=== PATIENT | female | born 1940 | race Caucasian/White ===

== ENCOUNTER 2018-05-22 09:35 | Emergency (ER) | payer MEDICARE, OTHER ==
--- NOTE | 2018-05-22 10:00 | EDM.PDOC ---
ED HPI GENERAL MEDICAL PROBLEM - General Chief Complaint: Trauma Stated Complaint: TRAUMA CODE Time Seen by Provider: 05/22/18 09:40 Source of Information: Reports: EMS History Limitations: Reports: Altered Mental Status (pt is none verbal. ) - History of Present Illness INITIAL COMMENTS - FREE TEXT/NARRATIVE: Patient comes by ambulance to the emergency department today from the local memory care unit following a fall at the care home. History of present illness is primarily obtained from EMS as the patient is nonverbal. The patient does not answer questions. She does not follow commands. According to the EMS the patient tripped on something at the care home fell backwards hitting the back of her head. Unknown if she had a loss of consciousness. According to report from EMS the patient is more "lethargic" than typical. She is on a baby aspirin. Rest of the HPI is unobtainable. Trauma team was activated prior to the patient arrival and present on the patient's arrival. - Related Data Allergies Allergy/AdvReac Type Severity Reaction Status Date / Time codeine Allergy unknown Verified 01/08/18 13:44 egg Allergy unknown Verified 01/08/18 13:44 Penicillins Allergy unknown Verified 01/08/18 13:44 Home Meds: Home Meds Aspirin 81 mg PO DAILY 01/08/18 [History] Donepezil HCl 10 mg PO BEDTIME 01/08/18 [History] Fluticasone Propionate [Flovent] 2 spray NASBOTH DAILY 01/08/18 [History] LORazepam 0.25 mg PO ASDIRECTED 01/08/18 [History] Levothyroxine [Synthroid] 50 mcg PO DAILY 01/08/18 [History] Memantine HCl 10 mg PO BID 01/08/18 [History] Metoprolol Tartrate 50 mg PO ASDIRECTED 01/08/18 [History] Multivit-Min/FA/Lutein/Zeaxant [Macular Vitamin Tablet] 1 tab PO DAILY 01/08/18 [History] Multivitamin [Multivitamins] 1 cap PO DAILY 01/08/18 [History] QUEtiapine [SEROquel] 25 mg PO ASDIRECTED 01/08/18 [History] Simvastatin 20 mg PO BEDTIME 01/08/18 [History] Spironolactone 50 mg PO DAILY 01/08/18 [History] Ubidecarenone [Coq10] 100 mg PO DAILY 01/08/18 [History] Acetaminophen [Tylenol] 650 mg PO Q4H PRN 05/22/18 [History] Ketotifen Fumarate [Allergy Eye Drops] 1 drop .ROUTE ASDIRECTED PRN 05/22/18 [ History] Nutritional Supplement [Resource 2.0] 120 ml PO TID 05/22/18 [History] Seroquel Gel 12.5 mg TOP Q8H PRN 05/22/18 [History] Past Medical History Cardiovascular History: Reports: High Cholesterol, Hypertension Respiratory History: Reports: Other (See Below) Other Respiratory History: allergic rhinitis Genitourinary History: Reports: Other (See Below) Other 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 Exam Limited By: Altered Mental Status General Appearance: Alert, WD/WN, No Apparent Distress, Thin. No: Lethargic, Obtunded Eye Exam: Bilateral Eye: EOMI (does spontaneously but not to command. ), Normal Inspection, PERRL Ears: Normal External Exam, Normal TMs Nose: Normal Inspection Throat/Mouth: Normal Inspection, Normal Lips, Normal Oropharynx Head: Normocephalic. No: Atraumatic (moans to the left parietal region. no bruising swelling ecchymosis bony deformities or step offs. No breaks in the skin. ), Facial Swelling, Facial Tenderness, Sinus Tenderness Neck: Normal Inspection, Supple, Non-Tender (Palpation down the posterior midline spine does not illicit any moaning or signs of pain. ) Respiratory/Chest: No Respiratory Distress, Lungs Clear, Normal Breath Sounds, No Accessory Muscle Use, Chest Non-Tender (No bruising swelling bony deformity or crepitus to the anterior and posterior thorax. ) Cardiovascular: Normal Peripheral Pulses, Regular Rate, Rhythm Peripheral Pulses: 2+: Radial (L), Radial (R), Posterior Tibial (L), Posterior Tibial (R), Dorsalis Pedis (L), Dorsalis Pedis (R) GI/Abdominal: Normal Bowel Sounds, Soft, Non-Tender, No Abnormal Bruit Back Exam: Normal Inspection, Full Range of Motion. No: Muscle Spasm, Paraspinal Tenderness, Vertebral Tenderness Neurological: Alert, Confused, Other (Does not follow commands. Moves all extremities spontaneously. GIve no verbal. ) Psychiatric: Normal Affect, Normal Mood Skin Exam: Warm, Dry, Intact, No Rash, Pallor Lymphatic: No Adenopathy Course - Orders/Labs/Meds Labs: Laboratory Tests 05/22/18 05/22/18 05/22/18 Range/Units 09:47 09:47 09:47 WBC 6.2 (5.0-10.0) 10^3/uL RBC 4.65 (4.2-5.4) 10^6/uL Hgb 14.6 (12.0-16.0) g/dL Hct 43.0 (37.0-47.0) % MCV 92.5 (80-100) fL MCH 31.4 (27.0-34.0) pg MCHC 34.0 (33.0-35.0) g/dL Plt Count 232 (150-450) 10^3/uL Neut % (Auto) 65.7 (42.2-75.2) % Lymph % (Auto) 26.3 (20.5-50.1) % [place] % (Auto) 7.1 (2-8) % Eos % (Auto) 0.6 L (1.0-3.0) % Baso % (Auto) 0.3 (0.0-1.0) % PT 10.3 (9.0-12.0) SEC INR 1.0 (0.9-1.2) Sodium 136 (135-145) mmol/L Potassium 4.3 (3.6-5.0) mmol/L Chloride 99 L (101-111) mmol/L Carbon Dioxide 24.0 (21.0-31.0) mmol/L Anion Gap 17.3 BUN 16 (7-18) mg/dL Creatinine 1.2 (0.6-1.3) mg/dL Est Cr Clr Drug Dosing TNP Estimated GFR (MDRD) 43 BUN/Creatinine Ratio 13.33 Glucose 122 H (74-105) mg/dL Calcium 9.7 (8.4-10.2) mg/dl Total Bilirubin 0.8 (0.2-1.0) mg/dL AST 32 (10-42) IU/L ALT 13 (10-60) IU/L Alkaline Phosphatase 103 (42-121) IU/L Total Protein 7.4 (6.7-8.2) g/dl Albumin 4.1 (3.2-5.5) g/dl Globulin 3.3 Albumin/Globulin Ratio 1.24 - Radiology Interpretation Free Text/Narrative:: CT cervical spine per radiology no acute cervical spine fracture. 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 - Re-Assessments/Exams Free Text/Narrative Re-Assessment/Exam: 05/22/18 11:26 We did visit with the nurse that takes care of the patient at the memory care unit and her mentation at this time is exactly the same as she typically is. Repeat primary and secondary survey does not find any new complaints although it is somewhat difficult as she really does not verbalize. She does not moan wince or grimace to any palpation from head to toe. Even the area on the left posterior parietal area that she moan to earlier she does not now. There is no bruising swelling ecchymosis bony deformity or step-offs. Departure - Departure Time of Disposition: 10:59 Disposition: DC/Tfer to 03 Clinical Impression: Concussion Qualifiers: Encounter type: initial encounter Loss of consciousness presence/duration: with LOC of unspecified duration Qualified Code(s): S06.0X9A - Concussion with loss of consciousness of unspecified duration, initial encounter Fall Qualifiers: Encounter type: initial encounter Qualified Code(s): W19.XXXA - Unspecified fall, initial encounter - Discharge Information Instructions: Concussion, Adult, [id number], Head Injury, Adult, [id number] Forms: ED Department Discharge Additional Instructions: Ice to the sore areas. Tylenol as needed for pain. Recheck if any new or worsening symptoms. Follow up with pcp in 3 days if any concerns. - Assessment/Plan Assessment:: Fall concusion Plan: Ice to the sore areas. Tylenol as needed for pain. Recheck if any new or worsening symptoms. Follow up with pcp in 3 days if any concerns.
--- NOTE | 2018-05-22 10:19 | CT ---
CLINICAL HISTORY: 78-year-old female injured in fall. SCAN TECHNIQUE: Volume acquisition of data from an emergency unenhanced CT scan head and brain obtained while the patient was lying supine on the Siemens multislice scanner [place], [place]. All data archived in the PACS system for storage, reformatting axial/sagittal/coronal planes and study (bone/brain windows). INTERPRETATION: Abnormal. 1. Multiple abnormal areas of decreased brain attenuation identified throughout the periventricular white matter of both cerebral hemispheres. 2. No surrounding edema or signs of acute intracerebral/intraventricular/subarachnoid bleed. 3. Moderate severe but symmetric cerebral cortical atrophy with underlying mirror-image normal ventricular ventricles (physiologic midline pineal and symmetric choroid plexus calcifications). No supratentorial or posterior fossa mass lesion. 4. Uniformly thick bony calvarium without sign of brain contusion or abnormal extracerebral/intracranial epidural or subdural hematoma. 5. Symmetric clear pneumatization of the paranasal sinuses (nasal septum is straight in the midline). No foreign bodies. CONCLUSION: Multi-infarct disease. No sign of skull fracture or closed head injury.
--- NOTE | 2018-05-22 10:21 | CT ---
CLINICAL HISTORY: 78-year-old female injured in fall. SCAN TECHNIQUE: Volume acquisition of data from an emergency unenhanced CT scan of the cervical spine obtained with the patient lying supine on the Siemens multislice scanner [place], [place]. All data archived in the PACS system for storage, reformatting axial/sagittal/coronal planes and study. INTERPRETATION: Homogeneous age/gender appropriate bone mineral density. 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 Subtle anterolisthesis of the C4 vertebral body associated with extensive reactive arthritic changes of the posterior articulating facets C2, C3, C4 and C5 vertebral bodies. Abnormal intervertebral disc space narrowing with endplate sclerosis and hypertrophic marginal/uncinate spur formation C4-5 and particularly C5-6 level. No sign of prevertebral soft tissue swelling cervical fracture or spondylolisthesis. No jumped locked facets. CONCLUSION: No acute cervical spine fracture.
[2018-05-22 10:22] LABS: ANION GAP 17.3; CHLORIDE,CL 99 mmol/L (101-111); SODIUM,NA 136 mmol/L (135-145)
== END 2018-05-22 11:27 ==
LOC: DL.ED 09:35
DX: S06.0X9A Concussion with loss of consciousness of unspecified duration, initial encounter (principal); I10 Essential (primary) hypertension; Z88.5 Allergy status to narcotic agent; Z91.012 Allergy to eggs; Z88.0 Allergy status to penicillin; Z79.82 Long term (current) use of aspirin; Z79.899 Other long term (current) drug therapy; W19.XXXA Unspecified fall, initial encounter; Y92.129 Unspecified place in nursing home as the place of occurrence of the external cause
CPT/HCPCS: 36415; 70450; 72125; 80053; 85025; 85610; 99285-25